=== PATIENT | male | born 1970 | race American Indian/Alaskan Native ===

== ENCOUNTER 2016-05-02 21:33 | Emergency (ER) | payer MEDICARE ==
[2016-05-03 00:51] LABS: Basophils % (Auto) 0.9 % (0.0-1.8); Eosinophils % (Auto) 3.2 % (0.0-4.3); Hematocrit 43.1 % (35.5-45.6); Hemoglobin 14.2 gm/dl (11.8-15.2); Mean Corpuscular HGB Conc 33 % (32-34); Mean Corpuscular Hemoglobin 28 pg (28-32); Mean Corpuscular Volume 84 fl (84-94); Platelet Count 253 K/mm3 (140-440); Red Blood Count 5.14 M/mm3 (3.65-5.03); Red Cell Distribution Width 14.6 % (13.2-15.2); White Blood Count 11.6 K/mm3 (4.5-11.0)
[2016-05-03 01:37] LABS: Anion Gap 19 mmol/L; Blood Urea Nitrogen 11 mg/dL (9-20); Calcium 9.4 mg/dL (8.4-10.2); Carbon Dioxide 26 mmol/L (22-30); Chloride 99.2 mmol/L (98-107); Glucose 108 mg/dL (75-100); Potassium 3.9 mmol/L (3.6-5.0); Sodium 140 mmol/L (137-145)
[2016-05-03 06:07] LABS: Urine Drugs of Abuse Note Disclamer
[2016-05-03 06:38] LABS: Bilirubin,Urine NEG (Negative); Blood,Urine NEG (Negative); Ketones,Urine NEG (Negative); Leukocyte Esterase,Urine NEG (Negative); Mucus,Urine 3+ /HPF; Nitrite,Urine NEG (Negative)
--- NOTE | 2016-05-03 06:57 | Emergency Department Report ---
ED Psych HPI - General Chief Complaint: Medical Clearance Stated Complaint: MEDICAL CLEARANCE Time Seen by Provider: 05/03/16 06:54 Source: patient Mode of arrival: Ambulatory Limitations: No Limitations - History of Present Illness Initial Comments: States that he was sent here by [facility] for medical clearance for the "[facility] ". He is not being transferred to an inpatient facility. He has no active complaints. He is going into an outpatient treatment program for cocaine abuse. He denies chest pain dark urine muscle aches or any specific symptoms. He is eating breakfast at the time of my encounter. MD Complaint: other -: unknown Associated Psychiatric Symptoms: none History of same: No Improves With: none Worsens With: none Context: recent drug abuse - Related Data Allergies Allergy/AdvReac Type Severity Reaction Status Date / Time No Known Allergies Allergy Unverified 05/03/16 00:18 ED Review of Systems ROS: Stated complaint: MEDICAL CLEARANCE Other details as noted in HPI Constitutional: denies: chills, fever Eyes: denies: eye pain, eye discharge, vision change ENT: denies: ear pain, throat pain Respiratory: denies: cough, shortness of breath, wheezing Cardiovascular: denies: chest pain, palpitations Endocrine: no symptoms reported Gastrointestinal: denies: abdominal pain, nausea, diarrhea Genitourinary: denies: urgency, dysuria Musculoskeletal: denies: back pain, joint swelling, arthralgia Skin: denies: rash, lesions Neurological: denies: headache, weakness, paresthesias Psychiatric: denies: anxiety, depression Hematological/Lymphatic: denies: easy bleeding, easy bruising ED Past Medical Hx - Past Medical History Previous Medical History?: Yes Hx Hypertension: Yes Hx Diabetes: Yes Hx GERD: Yes - Surgical History Past Surgical History?: No - Social History Smoking Status: Current Every Day Smoker Substance Use Type: Cocaine ED Physical Exam - General Limitations: No Limitations General appearance: alert, in no apparent distress - Head Head exam: Present: atraumatic, normocephalic - Eye Eye exam: Present: normal appearance, PERRL, EOMI. Absent: scleral icterus - ENT ENT exam: Present: mucous membranes moist - Neck Neck exam: Present: normal inspection - Respiratory Respiratory exam: Present: normal lung sounds bilaterally. Absent: respiratory distress - Cardiovascular Cardiovascular Exam: Present: regular rate, normal rhythm. Absent: systolic murmur, diastolic murmur, rubs, gallop - GI/Abdominal GI/Abdominal exam: Present: soft, normal bowel sounds. Absent: distended, tenderness, guarding, rebound, rigid - Rectal Rectal exam: Present: deferred - Extremities Exam Extremities exam: Present: normal inspection - Back Exam Back exam: Present: normal inspection - Neurological Exam Neurological exam: Present: alert, oriented X3, CN II-XII intact. Absent: motor sensory deficit - Psychiatric Psychiatric exam: Present: normal affect, normal mood - Skin Skin exam: Present: warm, dry, intact, normal color. Absent: rash ED Course Vital Signs 05/03/16 05/03/16 05/03/16 00:08 05:45 05:49 Temperature 97.9 F 98.5 F Pulse Rate 96 H 86 Respiratory 20 Rate Blood Pressure 139/97 Blood Pressure 123/83 [Left] O2 Sat by Pulse 99 96 97 Oximetry 05/03/16 05/03/16 05/03/16 05:50 06:00 06:30 Temperature Pulse Rate Respiratory Rate Blood Pressure 119/81 120/85 Blood Pressure [Left] O2 Sat by Pulse 98 95 90 Oximetry 05/03/16 05/03/16 07:00 07:30 Temperature Pulse Rate Respiratory Rate Blood Pressure 113/79 116/89 Blood Pressure [Left] O2 Sat by Pulse 95 96 Oximetry ED Medical Decision Making - Lab Data Result diagrams: 05/03/16 00:31 05/03/16 00:31 Laboratory Results - last 24 hr 05/03/16 05/03/16 05/03/16 00:31 00:31 00:31 WBC 11.6 H RBC 5.14 H Hgb 14.2 Hct 43.1 MCV 84 MCH 28 MCHC 33 RDW 14.6 Plt Count 253 Lymph % (Auto) 33.5 [place] % (Auto) 9.5 H Eos % (Auto) 3.2 Baso % (Auto) 0.9 Lymph # 3.9 [place] # 1.1 H Eos # 0.4 Baso # 0.1 Seg Neutrophils % 52.9 Seg Neutrophils # 6.1 Sodium 140 Potassium 3.9 Chloride 99.2 Carbon Dioxide 26 Anion Gap 19 BUN 11 Creatinine 1.0 Estimated GFR > 60 BUN/Creatinine Ratio 11.00 Glucose 108 H Calcium 9.4 Urine Color Urine Turbidity Urine pH Ur Specific [place] Urine Protein Urine Glucose (UA) Urine Ketones Urine Blood Urine Nitrite Ur Reducing Substances Urine Bilirubin Urine Ictotest Urine Urobilinogen Ur Leukocyte Esterase Urine WBC (Auto) Urine RBC (Auto) U Epithel Cells (Auto) Urine Mucus Urine Opiates Screen Urine Methadone Screen Ur Barbiturates Screen Ur Phencyclidine Scrn Ur Amphetamines Screen U Benzodiazepines Scrn U Marijuana (THC) Screen Drugs of Abuse Note Plasma/Serum Alcohol < 0.01 05/03/16 05/03/16 05:53 05:53 WBC RBC Hgb Hct MCV MCH MCHC RDW Plt Count Lymph % (Auto) [place] % (Auto) Eos % (Auto) Baso % (Auto) Lymph # [place] # Eos # Baso # Seg Neutrophils % Seg Neutrophils # Sodium Potassium Chloride Carbon Dioxide Anion Gap BUN Creatinine Estimated GFR BUN/Creatinine Ratio Glucose Calcium Urine Color [place] Urine Turbidity Clear Urine pH 5.0 Ur Specific [place] 1.028 Urine Protein 30 mg/dl Urine Glucose (UA) Neg Urine Ketones Neg Urine Blood Neg Urine Nitrite Neg Ur Reducing Substances Not Reportable Urine Bilirubin Neg Urine Ictotest Not Reportable Urine Urobilinogen 4.0 Ur Leukocyte Esterase Neg Urine WBC (Auto) 1.0 Urine RBC (Auto) 6.0 U Epithel Cells (Auto) < 1.0 Urine Mucus 3+ Urine Opiates Screen Presumptive negative Urine Methadone Screen Presumptive negative Ur Barbiturates Screen Presumptive negative Ur Phencyclidine Scrn Presumptive negative Ur Amphetamines Screen Presumptive negative U Benzodiazepines Scrn Presumptive negative U Marijuana (THC) Screen Presumptive negative Drugs of Abuse Note Disclamer Plasma/Serum Alcohol Critical care attestation.: If time is entered above; I have spent that time in minutes in the direct care of this critically ill patient, excluding procedure time. ED Disposition Clinical Impression: Cocaine abuse, Encounter for medical screening examination Disposition: DISCHARGED TO HOME OR SELFCARE Is pt being admited?: No Does the pt Need Aspirin: No Condition: Stable Instructions: Cocaine Abuse (ED) Additional Instructions: You are medically clear for an outpatient essential program such as [facility]. Referrals: PRIMARY CAREMD [Primary Care Provider] - 3-5 Days Time of Disposition: 08:11
[2016-05-03 12:24] VITALS: BP 101/55
== END 2016-05-03 11:55 | disposition home or self-care (01) ==
LOC: ED 21:33
DX: Z13.89 Encounter for screening for other disorder (principal); F14.10 Cocaine abuse, uncomplicated; I10 Essential (primary) hypertension; E11.9 Type 2 diabetes mellitus without complications; K21.9 Gastro-esophageal reflux disease without esophagitis; F17.200 Nicotine dependence, unspecified, uncomplicated
CPT/HCPCS: 36415; 80048; 80307; 81001; 85025; 99284; G0480; 80320

== ENCOUNTER 2016-08-23 08:40 | Emergency (ER) | payer MEDICARE ==
[2016-08-23 10:10] LABS: Basophils % (Auto) 1.2 % (0.0-1.8); Eosinophils % (Auto) 0.1 % (0.0-4.3); Hematocrit 41.7 % (35.5-45.6); Hemoglobin 13.6 gm/dl (11.8-15.2); Mean Corpuscular HGB Conc 33 % (32-34); Mean Corpuscular Hemoglobin 28 pg (28-32); Mean Corpuscular Volume 85 fl (84-94); Platelet Count 264 K/mm3 (140-440); Red Blood Count 4.89 M/mm3 (3.65-5.03); Red Cell Distribution Width 14.5 % (13.2-15.2); White Blood Count 11.8 K/mm3 (4.5-11.0)
[2016-08-23 10:29] LABS: Anion Gap 22 mmol/L; Blood Urea Nitrogen 9 mg/dL (9-20); Calcium 9.2 mg/dL (8.4-10.2); Carbon Dioxide 21 mmol/L (22-30); Chloride 98.3 mmol/L (98-107); Glucose 96 mg/dL (75-100); Potassium 4.2 mmol/L (3.6-5.0); Sodium 137 mmol/L (137-145)
[2016-08-23 13:40] LABS: Urine Drugs of Abuse Note Disclamer
[2016-08-23 13:51] LABS: Bilirubin,Urine NEG (Negative); Blood,Urine NEG (Negative); Ketones,Urine NEG (Negative); Leukocyte Esterase,Urine NEG (Negative); Mucus,Urine 1+ /HPF; Nitrite,Urine NEG (Negative); Protein,Urine <15 mg/dL mg/dL (Negative); Urobilinogen,Urine < 2.0 mg/dL (<2.0)
--- NOTE | 2016-08-23 15:56 | Emergency Department Report ---
ED Psych HPI - General Chief Complaint: Psych Stated Complaint: DETOX/SUICIDAL Time Seen by Provider: 08/23/16 15:42 Source: patient Mode of arrival: Ambulatory - History of Present Illness Initial Comments: 46-year-old male who presents emergency Department after use of alcohol and cocaine today. States she's feeling depressed about this and is looking to enter a treatment facility. He has been to [facility] and other facilities in the past. Denies chest pain nausea vomiting. He denied suicidality to me however he did mention that he was suicidal to the nursing staff. MD Complaint: feels depressed, other -: Gradual Associated Psychiatric Symptoms: depression Improves With: none Worsens With: none Context: recent alcohol abuse, recent drug abuse, not taking psychiatric Associated Symptoms: denies: confusion, headache, nausea, vomiting, syncope, insomnia Treatments Prior to Arrival: none - Related Data Allergies Allergy/AdvReac Type Severity Reaction Status Date / Time No Known Allergies Allergy Unverified 05/03/16 00:18 ED Review of Systems ROS: Stated complaint: DETOX/SUICIDAL Other details as noted in HPI Constitutional: denies: chills, fever Eyes: denies: eye pain, eye discharge, vision change ENT: denies: ear pain, throat pain Respiratory: denies: cough, shortness of breath, wheezing Cardiovascular: denies: chest pain, palpitations Endocrine: no symptoms reported Gastrointestinal: denies: abdominal pain, nausea, diarrhea Genitourinary: denies: urgency, dysuria Musculoskeletal: denies: back pain, joint swelling, arthralgia Skin: denies: rash, lesions Neurological: denies: headache, weakness, paresthesias Psychiatric: depression. denies: anxiety Hematological/Lymphatic: denies: easy bleeding, easy bruising ED Past Medical Hx - Past Medical History Hx Hypertension: Yes Hx Diabetes: Yes Hx GERD: Yes - Surgical History Past Surgical History?: No - Family History Family history: no significant - Social History Smoking Status: Current Every Day Smoker Substance Use Type: Cocaine ED Physical Exam - General Limitations: No Limitations General appearance: alert, in no apparent distress - Head Head exam: Present: atraumatic, normocephalic - Eye Eye exam: Present: normal appearance - ENT ENT exam: Present: mucous membranes moist - Neck Neck exam: Present: normal inspection - Respiratory Respiratory exam: Present: normal lung sounds bilaterally. Absent: respiratory distress - Cardiovascular Cardiovascular Exam: Present: regular rate, normal rhythm. Absent: systolic murmur, diastolic murmur, rubs, gallop - GI/Abdominal GI/Abdominal exam: Present: soft, normal bowel sounds - Rectal Rectal exam: Present: deferred - Extremities Exam Extremities exam: Present: normal inspection - Back Exam Back exam: Present: normal inspection - Neurological Exam Neurological exam: Present: alert, oriented X3 - Psychiatric Psychiatric exam: Present: depressed, flat affect - Skin Skin exam: Present: warm, dry, intact, normal color. Absent: rash ED Course Vital Signs 08/23/16 08/23/16 08/23/16 09:13 15:31 15:58 Temperature 98.4 F 98.5 F Pulse Rate 101 H 92 H Respiratory 12 18 16 Rate Blood Pressure 142/92 Blood Pressure 139/95 [Left] O2 Sat by Pulse 95 97 98 Oximetry 08/23/16 16:01 Temperature 98.7 F Pulse Rate 94 H Respiratory 18 Rate Blood Pressure Blood Pressure 123/84 [Left] O2 Sat by Pulse 98 Oximetry ED Medical Decision Making - Lab Data Result diagrams: 08/23/16 09:44 08/23/16 09:44 Laboratory Results - last 24 hr 08/23/16 08/23/16 08/23/16 09:44 09:44 09:44 WBC 11.8 H RBC 4.89 Hgb 13.6 Hct 41.7 MCV 85 MCH 28 MCHC 33 RDW 14.5 Plt Count 264 Lymph % (Auto) 29.5 [place] % (Auto) 8.3 H Eos % (Auto) 0.1 Baso % (Auto) 1.2 Lymph # 3.5 [place] # 1.0 H Eos # 0.0 Baso # 0.1 Seg Neutrophils % 60.9 Seg Neutrophils # 7.2 Sodium 137 Potassium 4.2 Chloride 98.3 Carbon Dioxide 21 L Anion Gap 22 BUN 9 Creatinine 1.0 Estimated GFR > 60 BUN/Creatinine Ratio 9.00 Glucose 96 Calcium 9.2 Urine Color Urine Turbidity Urine pH Ur Specific [place] Urine Protein Urine Glucose (UA) Urine Ketones Urine Blood Urine Nitrite Urine Bilirubin Urine Urobilinogen Ur Leukocyte Esterase Urine WBC (Auto) Urine RBC (Auto) U Epithel Cells (Auto) Hyaline Casts Urine Mucus Urine Opiates Screen Urine Methadone Screen Ur Barbiturates Screen Ur Phencyclidine Scrn Ur Amphetamines Screen U Benzodiazepines Scrn Urine Cocaine Screen U Marijuana (THC) Screen Drugs of Abuse Note Plasma/Serum Alcohol 0.14 H 08/23/16 08/23/16 Unknown Unknown WBC RBC Hgb Hct MCV MCH MCHC RDW Plt Count Lymph % (Auto) [place] % (Auto) Eos % (Auto) Baso % (Auto) Lymph # [place] # Eos # Baso # Seg Neutrophils % Seg Neutrophils # Sodium Potassium Chloride Carbon Dioxide Anion Gap BUN Creatinine Estimated GFR BUN/Creatinine Ratio Glucose Calcium Urine Color Yellow Urine Turbidity Slightly-cloudy Urine pH 5.0 Ur Specific [place] 1.015 Urine Protein <15 mg/dl Urine Glucose (UA) Neg Urine Ketones Neg Urine Blood Neg Urine Nitrite Neg Urine Bilirubin Neg Urine Urobilinogen < 2.0 Ur Leukocyte Esterase Neg Urine WBC (Auto) 4.0 Urine RBC (Auto) 2.0 U Epithel Cells (Auto) 1.0 Hyaline Casts 1 Urine Mucus 1+ Urine Opiates Screen Presumptive negative Urine Methadone Screen Presumptive negative Ur Barbiturates Screen Presumptive positive Ur Phencyclidine Scrn Presumptive negative Ur Amphetamines Screen Presumptive negative U Benzodiazepines Scrn Presumptive positive Urine Cocaine Screen Presumptive positive U Marijuana (THC) Screen Presumptive negative Drugs of Abuse Note Disclamer Plasma/Serum Alcohol - Medical Decision Making Procedural male here with a history of substance abuse has been to rehabilitation multiple times is here requesting rehabilitation. His labs are unremarkable. His clinical exam is unremarkable. He initially denied suicidality to me. He did say he was suicidal to the nurses. At this point I do not plan to 1013. Patient to follow-up at outpatient treatment center. Portions of this chart were dictated with dictation software. There may be dictation errors contained within this note. Critical care attestation.: If time is entered above; I have spent that time in minutes in the direct care of this critically ill patient, excluding procedure time. ED Disposition Clinical Impression: Substance abuse, Cocaine abuse, Alcohol intoxication Disposition: DC-01 TO HOME OR SELFCARE Is pt being admited?: No Does the pt Need Aspirin: No Condition: Stable Instructions: Abuse of Alcohol (ED), Medical Clearance for Substance Abuse Treatment (ED) Additional Instructions: Patient is medically clear for further treatment of substance abuse
[2016-08-23 16:02] VITALS: BP 123/84
== END 2016-08-23 16:49 | disposition home or self-care (01) ==
LOC: ED 08:40
DX: F19.10 Other psychoactive substance abuse, uncomplicated (principal); F14.10 Cocaine abuse, uncomplicated; F10.129 Alcohol abuse with intoxication, unspecified; I10 Essential (primary) hypertension; E11.9 Type 2 diabetes mellitus without complications; K21.9 Gastro-esophageal reflux disease without esophagitis; F17.200 Nicotine dependence, unspecified, uncomplicated
CPT/HCPCS: 36415; 80048; 80307; 81001; 85025; 99283; G0480; 80320

== ENCOUNTER 2017-04-20 18:11 | Emergency (ER) | payer MEDICARE ==
[2017-04-20 18:38] VITALS: BP 124/90
[2017-04-20] MEDS ORDERED: ASPIRIN PO ONE (18:38)
[2017-04-20 22:38] LABS: Bilirubin,Urine NEG (Negative); Blood,Urine NEG (Negative); Color,Urine Yellow (Yellow); Mucus,Urine 1+ /HPF; Protein,Urine <15 mg/dL mg/dL (Negative); Urobilinogen,Urine < 2.0 mg/dL (<2.0)
[2017-04-20 22:43] LABS: Amphetamine Screen,Urine PRESUMPTIVE NEGATIVE; Benzodiazepines Screen,Urine PRESUMPTIVE NEGATIVE; Cannabinoid Screen,Urine PRESUMPTIVE NEGATIVE; Methadone Screen,Urine PRESUMPTIVE NEGATIVE; Opiate Screen,Urine PRESUMPTIVE NEGATIVE
[2017-04-20 22:46] LABS: Cocaine Screen,Urine PRESUMPTIVE POSITIVE
== END 2017-04-20 20:00 | disposition left against medical advice (07) ==
LOC: ED 18:11
DX: R07.9 Chest pain, unspecified (principal); Z53.21 Procedure and treatment not carried out due to patient leaving prior to being seen by health care provider
CPT/HCPCS: 80307; 81001; 93005; 93010; 99283

== ENCOUNTER 2017-05-03 02:18 | Emergency (ER) | payer MEDICARE ==
[2017-05-03] MEDS ORDERED: ASPIRIN PO ONE (02:36)
[2017-05-03 02:59] LABS: Basophils # (Auto) 0.1 K/mm3 (0.0-0.1); Basophils % (Auto) 0.8 % (0.0-1.8); Eosinophils # (Auto) 0.3 K/mm3 (0.0-0.4); Eosinophils % (Auto) 3.6 % (0.0-4.3); Hematocrit 41.1 % (35.5-45.6); Hemoglobin 13.7 gm/dl (11.8-15.2); Lymphocytes # (Auto) 3.7 K/mm3 (1.2-5.4); Lymphocytes % (Auto) 48.1 % (13.4-35.0); Mean Corpuscular HGB Conc 33 % (32-34); Mean Corpuscular Hemoglobin 29 pg (28-32); Mean Corpuscular Volume 86 fl (84-94); Monocytes # (Auto) 0.7 K/mm3 (0.0-0.8); Monocytes % (Auto) 8.7 % (0.0-7.3); Platelet Count 220 K/mm3 (140-440); Red Blood Count 4.76 M/mm3 (3.65-5.03); Red Cell Distribution Width 14.9 % (13.2-15.2)
[2017-05-03 03:15] LABS: BUN/Creatinine Ratio 10; Blood Urea Nitrogen 9 mg/dL (9-20); Calcium 8.8 mg/dL (8.4-10.2); Hemolysis Index 7
[2017-05-03 07:07] LABS: Benzodiazepines Screen,Urine PRESUMPTIVE NEGATIVE; Cannabinoid Screen,Urine PRESUMPTIVE NEGATIVE; Methadone Screen,Urine PRESUMPTIVE NEGATIVE; Opiate Screen,Urine PRESUMPTIVE NEGATIVE
[2017-05-03 07:22] LABS: Amphetamine Screen,Urine PRESUMPTIVE POSITIVE; Cocaine Screen,Urine PRESUMPTIVE POSITIVE
--- NOTE | 2017-05-03 12:10 | Emergency Department Report ---
ED Chest Pain HPI - General Chief Complaint: Chest Pain Stated Complaint: CHEST PAIN Time Seen by Provider: 05/03/17 11:28 Source: patient, EMS Mode of arrival: Ambulatory Limitations: No Limitations - History of Present Illness MD Complaint: chest pain -: Gradual Onset: during exertion Severity: mild Severity scale (0 -10): 5 Quality: tightness, heaviness Consistency: constant Improves With: nitroglycerin Worsens With: exertion Context: other (Took a dose of his Seroquel last night so that he could get some sleep. His Seroquel was discontinued by his doctor and replaced with Haldol.) re: nausea Other Symptoms: palpitations Treatments Prior to Arrival: aspirin, nitroglycerin Aspirin use within the Past 7 Days: (1) Yes - Related Data Allergies Allergy/AdvReac Type Severity Reaction Status Date / Time No Known Allergies Allergy Verified 04/20/17 21:18 Heart Score - HEART Score History: Slightly suspicious EKG: Normal Age: 45-65 Risk factors: 1-2 risk factors Troponin: < normal limit HEART Score: 2 ED Review of Systems ROS: Stated complaint: CHEST PAIN Other details as noted in HPI Comment: All other systems reviewed and negative Constitutional: denies: chills, fever Eyes: denies: eye pain, eye discharge, vision change ENT: denies: ear pain, throat pain Respiratory: denies: cough, shortness of breath, wheezing Cardiovascular: denies: chest pain, palpitations Endocrine: no symptoms reported Gastrointestinal: denies: abdominal pain, nausea, diarrhea Genitourinary: denies: urgency, dysuria Musculoskeletal: denies: back pain, joint swelling, arthralgia Skin: denies: rash, lesions Neurological: denies: headache, weakness, paresthesias Psychiatric: denies: anxiety, depression Hematological/Lymphatic: denies: easy bleeding, easy bruising ED Past Medical Hx - Past Medical History Previous Medical History?: Yes Hx Hypertension: Yes Hx Heart Attack/AMI: Yes (x2- 3stents) Hx Diabetes: Yes Hx GERD: Yes Hx Psychiatric Treatment: Yes (depression) Additional medical history: crack abuse - Surgical History Past Surgical History?: Yes Additional Surgical History: 3 angiograms - Social History Smoking Status: Current Every Day Smoker Substance Use Type: Alcohol, Cocaine, Marijuana ED Physical Exam - General Limitations: No Limitations General appearance: alert, in no apparent distress - Head Head exam: Present: atraumatic, normocephalic - Eye Eye exam: Present: normal appearance - ENT ENT exam: Present: mucous membranes moist - Neck Neck exam: Present: normal inspection - Respiratory Respiratory exam: Present: normal lung sounds bilaterally. Absent: respiratory distress - Cardiovascular Cardiovascular Exam: Present: regular rate, normal rhythm, normal heart sounds. Absent: systolic murmur, diastolic murmur, rubs, gallop - GI/Abdominal GI/Abdominal exam: Present: soft, normal bowel sounds. Absent: distended - Rectal Rectal exam: Present: deferred - Extremities Exam Extremities exam: Present: normal inspection - Back Exam Back exam: Present: normal inspection - Neurological Exam Neurological exam: Present: alert, oriented X3 - Psychiatric Psychiatric exam: Present: normal affect, normal mood - Skin Skin exam: Present: warm, dry, intact, normal color. Absent: rash ED Course Vital Signs 05/03/17 05/03/17 02:20 08:22 Temperature 97.9 F 97.9 F Pulse Rate 103 H 77 Respiratory 20 18 Rate Blood Pressure 97/55 103/70 O2 Sat by Pulse 96 99 Oximetry Patient resting comfortably and without complaints of pain. - Reevaluation(s) Reevaluation #1: 05/03/17 14:08 Patient resting comfortably in bed with no complaints. WICHO score - [place] Score Age > 65: (0) No Aspirin use within the Past 7 Days: (0) No 3 or more CAD Risk Factors: (0) No 2 or more Angina events in past 24 hrs: (0) No Known CAD with more than 50% Stenosis: (0) No Elevated Cardiac Markers: (0) No ST Deviation Greater than 0.5mm: (0) No WICHO Score: 0 ED Medical Decision Making - Lab Data Result diagrams: 05/03/17 02:49 05/03/17 02:49 - EKG Data EKG shows normal: sinus rhythm Rate: normal - EKG Data When compared to previous EKG there are: previous EKG unavailable Interpretation: no acute changes - Medical Decision Making Discussed patient's condition. I instructed to not take any more of his Seroquel unless directed by his PCP. He was also instructed to discontinue use of cocaine and to take prescribed medications as directed. He is to follow up with PCP in 2 days. - Differential Diagnosis Palpitations, Angina, Chest Pain - non-cardiac Critical Care Time: No Critical care attestation.: If time is entered above; I have spent that time in minutes in the direct care of this critically ill patient, excluding procedure time. ED Disposition Clinical Impression: Chest pain due to CAD, Palpitations, Cocaine abuse, Non compliance w medication regimen Disposition: TO HOME OR SELFCARE Is pt being admited?: No Does the pt Need Aspirin: No Condition: Stable Instructions: Chest Pain (ED) Referrals: PRIMARY CARE, [Primary Care Provider] - 3-5 Days
[2017-05-03 16:01] VITALS: BP 122/70
== END 2017-05-03 16:22 | disposition home or self-care (01) ==
LOC: ED 02:18
DX: R07.9 Chest pain, unspecified (principal); R00.2 Palpitations; F14.10 Cocaine abuse, uncomplicated; Z91.14 Patient's other noncompliance with medication regimen; I10 Essential (primary) hypertension; G43.909 Migraine, unspecified, not intractable, without status migrainosus; E11.9 Type 2 diabetes mellitus without complications; K21.9 Gastro-esophageal reflux disease without esophagitis
CPT/HCPCS: 36415; 80048; 80307; 84484; 85025; 93005; 93010

== ENCOUNTER 2017-07-22 16:28 | Emergency (ER) | payer MEDICARE ==
[2017-07-22 17:38] LABS: Basophils # (Auto) 0.2 K/mm3 (0.0-0.1); Basophils % (Auto) 1.1 % (0.0-1.8); Eosinophils % (Auto) 0.2 % (0.0-4.3); Hemoglobin 14.1 gm/dl (11.8-15.2); Lymphocytes # (Auto) 2.9 K/mm3 (1.2-5.4); Lymphocytes % (Auto) 20.8 % (13.4-35.0); Mean Corpuscular HGB Conc 34 % (32-34); Mean Corpuscular Hemoglobin 29 pg (28-32); Mean Corpuscular Volume 86 fl (84-94); Monocytes # (Auto) 1.3 K/mm3 (0.0-0.8); Platelet Count 295 K/mm3 (140-440); Red Blood Count 4.87 M/mm3 (3.65-5.03); Red Cell Distribution Width 14.6 % (13.2-15.2)
[2017-07-22 17:59] LABS: BUN/Creatinine Ratio 15; Blood Urea Nitrogen 16 mg/dL (9-20); Calcium 9.3 mg/dL (8.4-10.2); Hemolysis Index 105
[2017-07-22 18:02] LABS: Bilirubin,Urine NEG (Negative); Blood,Urine NEG (Negative); Color,Urine Yellow (Yellow); Hyaline Casts,Urine 22 /LPF; Mucus,Urine 2+ /HPF; Urobilinogen,Urine < 2.0 mg/dL (<2.0)
[2017-07-22 18:16] LABS: Benzodiazepines Screen,Urine PRESUMPTIVE NEGATIVE; Cannabinoid Screen,Urine PRESUMPTIVE NEGATIVE; Methadone Screen,Urine PRESUMPTIVE NEGATIVE; Opiate Screen,Urine PRESUMPTIVE NEGATIVE
[2017-07-22 18:29] LABS: Amphetamine Screen,Urine PRESUMPTIVE NEGATIVE; Cocaine Screen,Urine PRESUMPTIVE POSITIVE
--- NOTE | 2017-07-22 20:21 | Emergency Department Report ---
ED Psych HPI - General Chief Complaint: Psych Stated Complaint: DEPRESSED Time Seen by Provider: 07/22/17 19:56 Source: patient, EMS Mode of arrival: Ambulatory Limitations: No Limitations - History of Present Illness MD Complaint: suicidal ideation -: Gradual Associated Psychiatric Symptoms: suicidal ideation History of same: Yes Quality: constant Improves With: none Worsens With: none Context: recent alcohol abuse, recent drug abuse Associated Symptoms: denies other symptoms Treatments Prior to Arrival: none If Self Harm: admits thoughts of - Related Data Home Medications Medication Instructions Recorded Confirmed Last Taken AtorvaSTATin 80 mg PO HS 05/27/17 05/27/17 1 Day Ago ~05/26/17 Haldol 2 mg PO HS MDD psychosis 05/27/17 05/27/17 2 Days Ago ~05/25/17 2mg Lisinopril [Zestril] 20 mg PO QDAY 05/27/17 05/27/17 1 Day Ago ~05/26/17 Metoprolol [Lopressor TAB] 12.5 mg PO BID 05/27/17 05/27/17 1 Day Ago ~05/26/17 Mirtazapine [Remeron] 15 mg PO HS 05/27/17 05/27/17 1 Day Ago ~05/26/17 15mg Zantac 150 MG TAB 150 mg PO BID 05/27/17 05/27/17 1 Day Ago ~05/26/17 Zoloft 100 mg PO QDAY 05/27/17 05/27/17 1 Day Ago ~05/26/17 100mg Previous Rx's Medication Instructions Recorded Last Taken Type Aspirin EC [Aspirin Enteric Coated 81 mg PO QDAY #30 tablet. 05/29/17 Unknown Rx TAB] Famotidine [Pepcid] 20 mg PO BID #60 tablet 05/29/17 Unknown Rx ISOSORBIDE MONOnitrate [Imdur ER] 30 mg PO QDAY #30 tablet 05/29/17 Unknown Rx Allergies Allergy/AdvReac Type Severity Reaction Status Date / Time No Known Allergies Allergy Verified 04/20/17 21:18 ED Review of Systems ROS: Stated complaint: DEPRESSED Other details as noted in HPI Comment: All other systems reviewed and negative Constitutional: denies: chills, fever Eyes: denies: eye pain, vision change ENT: denies: ear pain, dental pain Respiratory: denies: cough, shortness of breath Cardiovascular: denies: chest pain, palpitations Endocrine: no symptoms reported Gastrointestinal: denies: abdominal pain, nausea, vomiting, diarrhea Genitourinary: denies: urgency, dysuria, frequency Musculoskeletal: denies: back pain, joint swelling Skin: denies: rash, lesions Neurological: denies: headache, weakness, numbness Psychiatric: denies: anxiety, depression Hematological/Lymphatic: denies: easy bleeding, easy bruising ED Past Medical Hx - Past Medical History Previous Medical History?: Yes Hx Hypertension: Yes Hx Heart Attack/AMI: Yes (x2- 3stents) Hx Diabetes: Yes Hx GERD: Yes Hx Psychiatric Treatment: Yes (major depression, Schizoaffective, Insomnia) Hx COPD: No Additional medical history: crack abuse - Surgical History Past Surgical History?: Yes Hx Coronary Stent: Yes Additional Surgical History: 3 angiograms - Social History Smoking Status: Current Every Day Smoker Substance Use Type: Alcohol, Cocaine, Marijuana - Medications Home Medications: Home Medications Medication Instructions Recorded Confirmed Last Taken Type AtorvaSTATin 80 mg PO HS 05/27/17 05/27/17 1 Day Ago History ~05/26/17 Haldol 2 mg PO HS MDD psychosis 05/27/17 05/27/17 2 Days Ago History ~05/25/17 2mg Lisinopril [Zestril] 20 mg PO QDAY 05/27/17 05/27/17 1 Day Ago History ~05/26/17 Metoprolol [Lopressor TAB] 12.5 mg PO BID 05/27/17 05/27/17 1 Day Ago History ~05/26/17 Mirtazapine [Remeron] 15 mg PO HS 05/27/17 05/27/17 1 Day Ago History ~05/26/17 15mg Zantac 150 MG TAB 150 mg PO BID 05/27/17 05/27/17 1 Day Ago History ~05/26/17 Zoloft 100 mg PO QDAY 05/27/17 05/27/17 1 Day Ago History ~05/26/17 100mg Aspirin EC [Aspirin Enteric Coated 81 mg PO QDAY #30 tablet. 05/29/17 Unknown Rx TAB] Famotidine [Pepcid] 20 mg PO BID #60 tablet 05/29/17 Unknown Rx ISOSORBIDE MONOnitrate [Imdur ER] 30 mg PO QDAY #30 tablet 05/29/17 Unknown Rx ED Physical Exam - General Limitations: No Limitations General appearance: alert - Head Head exam: Present: atraumatic, normocephalic, normal inspection - Eye Eye exam: Present: normal appearance, PERRL, EOMI Pupils: Present: normal accommodation - ENT ENT exam: Present: normal exam, normal orophraynx, mucous membranes moist - Neck Neck exam: Present: normal inspection, full ROM. Absent: tenderness - Respiratory Respiratory exam: Present: normal lung sounds bilaterally. Absent: respiratory distress, wheezes, rhonchi - Cardiovascular Cardiovascular Exam: Present: regular rate, normal rhythm, normal heart sounds - GI/Abdominal GI/Abdominal exam: Present: soft, normal bowel sounds. Absent: distended, tenderness, guarding, rebound - Extremities Exam Extremities exam: Present: normal inspection, normal capillary refill - Back Exam Back exam: Present: normal inspection, full ROM. Absent: tenderness - Neurological Exam Neurological exam: Present: alert, oriented X3, CN II-XII intact - Psychiatric Psychiatric exam: Present: normal mood, depressed, flat affect, suicidal ideation - Skin Skin exam: Present: warm, dry, intact, normal color ED Course Vital Signs 07/22/17 17:04 Temperature 99.1 F Pulse Rate 96 H Respiratory 20 Rate Blood Pressure 99/63 O2 Sat by Pulse 100 Oximetry ED Medical Decision Making - Lab Data Result diagrams: 07/22/17 17:20 07/22/17 17:20 - Radiology Data Radiology results: report reviewed - Medical Decision Making Suicide Ideation. Critical care attestation.: If time is entered above; I have spent that time in minutes in the direct care of this critically ill patient, excluding procedure time. ED Disposition Clinical Impression: Cocaine abuse, Suicide ideation, Alcohol abuse Disposition: [id number]/TX-65 PSY HOSP/PSY UNIT Is pt being admited?: No Does the pt Need Aspirin: No Condition: Stable Referrals: PRIMARY CARE,MD [Primary Care Provider] - 3-5 Days
[2017-07-22 21:04] LABS: Alanine Aminotransferase 35 units/L (7-56); Albumin 4.8 g/dL (3.9-5)
[2017-07-22 21:05] LABS: Bilirubin,Direct < 0.2 mg/dL (0-0.2)
[2017-07-22 23:21] VITALS: BP 106/61
== END 2017-07-23 08:15 ==
LOC: EEVIPCON 16:28 → ED 16:28
DX: R45.851 Suicidal ideations (principal); I10 Essential (primary) hypertension; I25.2 Old myocardial infarction; E11.9 Type 2 diabetes mellitus without complications; K21.9 Gastro-esophageal reflux disease without esophagitis; F32.9 Major depressive disorder, single episode, unspecified; F17.200 Nicotine dependence, unspecified, uncomplicated; F10.10 Alcohol abuse, uncomplicated; F14.10 Cocaine abuse, uncomplicated; Z79.82 Long term (current) use of aspirin; Z95.5 Presence of coronary angioplasty implant and graft
CPT/HCPCS: 36415; 80048; 80074; 80307; 81001; 84443; 85025; 99285; G0480; 80320

== ENCOUNTER 2017-10-24 04:05 | Emergency (ER) | payer MEDICARE ==
[2017-10-24 05:07] LABS: Basophils # (Auto) 0.1 K/mm3 (0.0-0.1); Basophils % (Auto) 0.7 % (0.0-1.8); Eosinophils % (Auto) 0.1 % (0.0-4.3); Hematocrit 43.2 % (35.5-45.6); Hemoglobin 14.5 gm/dl (11.8-15.2); Lymphocytes # (Auto) 2.1 K/mm3 (1.2-5.4); Lymphocytes % (Auto) 21.9 % (13.4-35.0); Mean Corpuscular HGB Conc 34 % (32-34); Mean Corpuscular Hemoglobin 30 pg (28-32); Mean Corpuscular Volume 88 fl (84-94); Monocytes # (Auto) 0.7 K/mm3 (0.0-0.8); Monocytes % (Auto) 7.3 % (0.0-7.3); Platelet Count 218 K/mm3 (140-440); Red Blood Count 4.93 M/mm3 (3.65-5.03)
[2017-10-24 05:28] LABS: BUN/Creatinine Ratio 9; Blood Urea Nitrogen 11 mg/dL (9-20); Calcium 9.6 mg/dL (8.4-10.2); Hemolysis Index 4
--- NOTE | 2017-10-24 10:21 | Emergency Department Report ---
ED Psych HPI - General Chief Complaint: Chest Pain Stated Complaint: CHEST PAIN Time Seen by Provider: 10/24/17 10:13 Source: patient Mode of arrival: Ambulatory - History of Present Illness Initial Comments: Is a 47-year-old male who is complaining of chest discomfort. Patient states she's been smoking crack and has just pain after smoking crack. Patient states he's been using drugs in order to get high so that he no longer has suicidal thoughts. Patient states been feeling suicidal for approximately a week we'll plan to drown himself in a nearby [place]. Patient is here wanting help for his drug addiction and suicidal ideations. Patient has no current chest pain or shortness of breath.. Patient denies any nausea vomiting diarrhea or diaphoresis. - Related Data Home Medications Medication Instructions Recorded Confirmed Last Taken Atorvastatin Calcium [Lipitor] 80 mg PO QHS #0 05/27/17 10/09/17 1 Day Ago ~05/26/17 Haloperidol [Haldol] 2 mg PO QHS #0 MDD psychosis 05/27/17 10/09/17 2 Days Ago ~05/25/17 2mg Metoprolol [Lopressor TAB] 12.5 mg PO BID 05/27/17 10/09/17 1 Day Ago ~05/26/17 Ranitidine HCl [Zantac 150 MG TAB] 150 mg PO BID #0 05/27/17 10/09/17 1 Day Ago ~05/26/17 Sertraline [Zoloft] 100 mg PO QDAY #0 05/27/17 10/09/17 1 Day Ago ~05/26/17 100mg Previous Rx's Medication Instructions Recorded Last Taken Type Aspirin EC [Aspirin Enteric Coated 81 mg PO QDAY #30 tablet.dr 05/29/17 Unknown Rx TAB] Famotidine [Pepcid] 20 mg PO BID #60 tablet 05/29/17 Unknown Rx Aspirin EC [Aspirin Enteric Coated 325 mg PO QDAY #30 tablet 10/10/17 Unknown Rx TAB] AtorvaSTATin [Lipitor] 40 mg PO QHS #30 tablet 10/10/17 Unknown Rx Haloperidol [Haldol] 2 mg PO QHS tablet 10/10/17 Unknown Rx ISOSORBIDE MONOnitrate [Imdur ER] 30 mg PO QDAY #30 tablet 10/10/17 Unknown Rx Lisinopril [Zestril] 20 mg PO QDAY #30 tablet 10/10/17 Unknown Rx Mirtazapine [Remeron] 15 mg PO HS #30 tablet 10/10/17 Unknown Rx Sertraline [Zoloft] 100 mg PO QDAY #30 tablet 10/10/17 Unknown Rx Allergies Allergy/AdvReac Type Severity Reaction Status Date / Time No Known Allergies Allergy Verified 04/20/17 21:18 ED Review of Systems ROS: Stated complaint: CHEST PAIN Other details as noted in HPI Comment: All other systems reviewed and negative ED Past Medical Hx - Past Medical History Previous Medical History?: Yes Hx Hypertension: Yes Hx Heart Attack/AMI: Yes (x2- 3stents) Hx Diabetes: Yes Hx GERD: Yes Hx Psychiatric Treatment: Yes (major depression, Schizoaffective, Insomnia) Hx COPD: No Additional medical history: crack abuse - Surgical History Past Surgical History?: Yes Hx Coronary Stent: Yes Additional Surgical History: 3 angiograms - Social History Smoking Status: Current Every Day Smoker Substance Use Type: Alcohol, Cocaine, Methamphetamines - Medications Home Medications: Home Medications Medication Instructions Recorded Confirmed Last Taken Type Atorvastatin Calcium [Lipitor] 80 mg PO QHS #0 05/27/17 10/09/17 1 Day Ago History ~05/26/17 Haloperidol [Haldol] 2 mg PO QHS #0 MDD psychosis 05/27/17 10/09/17 2 Days Ago History ~05/25/17 2mg Metoprolol [Lopressor TAB] 12.5 mg PO BID 05/27/17 10/09/17 1 Day Ago History ~05/26/17 Ranitidine HCl [Zantac 150 MG TAB] 150 mg PO BID #0 05/27/17 10/09/17 1 Day Ago History ~05/26/17 Sertraline [Zoloft] 100 mg PO QDAY #0 05/27/17 10/09/17 1 Day Ago History ~05/26/17 100mg Aspirin EC [Aspirin Enteric Coated 81 mg PO QDAY #30 tablet. 05/29/17 Unknown Rx TAB] Famotidine [Pepcid] 20 mg PO BID #60 tablet 05/29/17 10/09/17 Unknown Rx Aspirin EC [Aspirin Enteric Coated 325 mg PO QDAY #30 tablet 10/10/17 Unknown Rx TAB] AtorvaSTATin [Lipitor] 40 mg PO QHS #30 tablet 10/10/17 Unknown Rx Haloperidol [Haldol] 2 mg PO QHS tablet 10/10/17 Unknown Rx ISOSORBIDE MONOnitrate [Imdur ER] 30 mg PO QDAY #30 tablet 10/10/17 Unknown Rx Lisinopril [Zestril] 20 mg PO QDAY #30 tablet 10/10/17 Unknown Rx Mirtazapine [Remeron] 15 mg PO HS #30 tablet 10/10/17 Unknown Rx Sertraline [Zoloft] 100 mg PO QDAY #30 tablet 10/10/17 Unknown Rx ED Physical Exam - General Limitations: No Limitations General appearance: alert, in no apparent distress - Head Head exam: Present: atraumatic, normocephalic - Eye Eye exam: Present: normal appearance - ENT ENT exam: Present: mucous membranes moist - Neck Neck exam: Present: normal inspection - Respiratory Respiratory exam: Present: normal lung sounds bilaterally. Absent: respiratory distress, wheezes, rales, rhonchi - Cardiovascular Cardiovascular Exam: Present: regular rate, normal rhythm. Absent: systolic murmur, diastolic murmur, rubs, gallop - GI/Abdominal GI/Abdominal exam: Present: soft, normal bowel sounds. Absent: distended, tenderness, guarding, rebound - Rectal Rectal exam: Present: deferred - Extremities Exam Extremities exam: Present: normal inspection - Back Exam Back exam: Present: normal inspection - Neurological Exam Neurological exam: Present: alert, oriented X3 - Psychiatric Psychiatric exam: Present: normal affect, normal mood - Skin Skin exam: Present: warm, dry, intact, normal color. Absent: rash ED Course Vital Signs 10/24/17 04:27 Temperature 99.4 F Pulse Rate 104 H Respiratory 20 Rate Blood Pressure 122/92 O2 Sat by Pulse 97 Oximetry ED Medical Decision Making - Lab Data Result diagrams: 10/24/17 04:40 10/24/17 04:40 Lab Results 10/24/17 10/24/17 10/24/17 Range/Units 04:40 04:40 04:40 WBC 9.6 (4.5-11.0) K/mm3 RBC 4.93 (3.65-5.03) M/mm3 Hgb 14.5 (11.8-15.2) gm/dl Hct 43.2 (35.5-45.6) % MCV 88 (84-94) fl MCH 30 (28-32) pg MCHC 34 (32-34) % RDW 15.0 (13.2-15.2) % Plt Count 218 (140-440) K/mm3 Lymph % (Auto) 21.9 (13.4-35.0) % [place] % (Auto) 7.3 (0.0-7.3) % Eos % (Auto) 0.1 (0.0-4.3) % Baso % (Auto) 0.7 (0.0-1.8) % Lymph # 2.1 (1.2-5.4) K/mm3 [place] # 0.7 (0.0-0.8) K/mm3 Eos # 0.0 (0.0-0.4) K/mm3 Baso # 0.1 (0.0-0.1) K/mm3 Seg Neutrophils % 70.0 (40.0-70.0) % Seg Neutrophils # 6.7 (1.8-7.7) K/mm3 Sodium (137-145) mmol/L Potassium (3.6-5.0) mmol/L Chloride (98-107) mmol/L Carbon Dioxide (22-30) mmol/L Anion Gap mmol/L BUN (9-20) mg/dL Creatinine (0.8-1.5) mg/dL Estimated GFR ml/min BUN/Creatinine Ratio % Glucose (75-100) mg/dL Calcium (8.4-10.2) mg/dL Troponin T (0.00-0.029) ng/mL Salicylates 0.6 L (2.8-20.0) mg/dL Acetaminophen < 5.0 L (10.0-30.0) ug/mL Plasma/Serum Alcohol (0-0.07) % 10/24/17 10/24/17 10/24/17 Range/Units 04:40 04:40 07:42 WBC (4.5-11.0) K/mm3 RBC (3.65-5.03) M/mm3 Hgb (11.8-15.2) gm/dl Hct (35.5-45.6) % MCV (84-94) fl MCH (28-32) pg MCHC (32-34) % RDW (13.2-15.2) % Plt Count (140-440) K/mm3 Lymph % (Auto) (13.4-35.0) % [place] % (Auto) (0.0-7.3) % Eos % (Auto) (0.0-4.3) % Baso % (Auto) (0.0-1.8) % Lymph # (1.2-5.4) K/mm3 [place] # (0.0-0.8) K/mm3 Eos # (0.0-0.4) K/mm3 Baso # (0.0-0.1) K/mm3 Seg Neutrophils % (40.0-70.0) % Seg Neutrophils # (1.8-7.7) K/mm3 Sodium 142 (137-145) mmol/L Potassium 4.6 (3.6-5.0) mmol/L Chloride 101.8 (98-107) mmol/L Carbon Dioxide 22 (22-30) mmol/L Anion Gap 23 mmol/L BUN 11 (9-20) mg/dL Creatinine 1.2 (0.8-1.5) mg/dL Estimated GFR > 60 ml/min BUN/Creatinine Ratio 9 % Glucose 97 (75-100) mg/dL Calcium 9.6 (8.4-10.2) mg/dL Troponin T < 0.010 < 0.010 (0.00-0.029) ng/mL Salicylates (2.8-20.0) mg/dL Acetaminophen (10.0-30.0) ug/mL Plasma/Serum Alcohol 0.07 (0-0.07) % - EKG Data -: EKG Interpreted by [facility] EKG shows normal: sinus rhythm, axis, intervals, QRS complexes, ST-T waves - EKG Data Interpretation: normal EKG - Radiology Data Ordering Physician: KACIE SELF MD Date of Service: 10/24/17 Procedure(s): XR chest 1V ap Accession Number(s): [id number] cc: KACIE SELF MD Fluoro Time In Minutes: Single view chest: Compared to 10/09/17. History: Chest pain. Next Findings: Normal cardiomediastinal silhouette. Trachea is midline. No consolidation, pneumothorax or pleural effusion. Impression: No acute cardiopulmonary findings. Transcribed By: PTP Dictated By: DANAY WILSON MD Electronically Authenticated By: DANAY WILSON MD Signed Date/Time: 10/24/17 1011 - Medical Decision Making Patient has been medically cleared at this time for psych evaluation. Patient' s EKG troponin and chest x-ray are not consistent with acute coronary syndrome. Patient's chest pain is most likely secondary just from the heat from using crack cocaine. Critical Care Time: Yes (30) Critical care attestation.: If time is entered above; I have spent that time in minutes in the direct care of this critically ill patient, excluding procedure time. ED Disposition Clinical Impression: Cocaine abuse, Suicidal thoughts Chest pain Qualifiers: Chest pain type: unspecified Qualified Code(s): R07.9 - Chest pain, unspecified Disposition: DC/TX-65 PSY HOSP/PSY UNIT Is pt being admited?: No Condition: Stable Instructions: Chest Pain (ED) Referrals: PRIMARY CARE, [Primary Care Provider] - 3-5 Days
--- NOTE | 2017-10-24 10:29 | XRay Report ---
Single view chest: Compared to 10/09/17. History: Chest pain. Next Findings: Normal cardiomediastinal silhouette. Trachea is midline. No consolidation, pneumothorax or pleural effusion. Impression: No acute cardiopulmonary findings.
[2017-10-24 13:16] LABS: Bilirubin,Urine NEG (Negative); Blood,Urine SM (Negative); Color,Urine Yellow (Yellow); Mucus,Urine 1+ /HPF; Protein,Urine <15 mg/dL mg/dL (Negative)
[2017-10-24 13:24] LABS: Benzodiazepines Screen,Urine PRESUMPTIVE NEGATIVE; Cannabinoid Screen,Urine PRESUMPTIVE NEGATIVE; Methadone Screen,Urine PRESUMPTIVE NEGATIVE; Opiate Screen,Urine PRESUMPTIVE NEGATIVE
[2017-10-24 13:38] LABS: Amphetamine Screen,Urine PRESUMPTIVE POSITIVE; Cocaine Screen,Urine PRESUMPTIVE POSITIVE
[2017-10-25 14:13] VITALS: BP 126/94
== END 2017-10-25 13:35 ==
LOC: EEVIPCON 04:05 → ED 04:05
DX: R07.89 Other chest pain (principal); F14.10 Cocaine abuse, uncomplicated; I11.0 Hypertensive heart disease with heart failure; E11.9 Type 2 diabetes mellitus without complications; K21.9 Gastro-esophageal reflux disease without esophagitis; F32.9 Major depressive disorder, single episode, unspecified; F25.9 Schizoaffective disorder, unspecified; G47.00 Insomnia, unspecified; F17.200 Nicotine dependence, unspecified, uncomplicated; Z95.1 Presence of aortocoronary bypass graft; Z79.82 Long term (current) use of aspirin
CPT/HCPCS: 36415; 71045; 80048; 80307; 81001; 82962; 84484; 85025; 93005; 93010; 99291; G0480; 80320

== ENCOUNTER 2019-08-20 21:43 | Observation (INO) | payer MEDICARE ==
[2019-08-20] MEDS ORDERED: ASPIRIN 325 MG TAB PO ONE (22:56)
[2019-08-20 23:21] LABS: Basophils # (Auto) 0.1 K/mm3 (0.0-0.1); Eosinophils % (Auto) 0.4 % (0.0-4.3); Hematocrit 41.2 % (35.5-45.6); Hemoglobin 13.7 gm/dl (11.8-15.2); Lymphocytes # (Auto) 2.6 K/mm3 (1.2-5.4); Lymphocytes % (Auto) 27.3 % (13.4-35.0); Mean Corpuscular HGB Conc 33 % (32-34); Mean Corpuscular Volume 87 fl (84-94); Monocytes # (Auto) 1.2 K/mm3 (0.0-0.8); Monocytes % (Auto) 12.9 % (0.0-7.3); Platelet Count 265 K/mm3 (140-440); Red Blood Count 4.75 M/mm3 (3.65-5.03); Red Cell Distribution Width 15.3 % (13.2-15.2)
[2019-08-20 23:33] LABS: BUN/Creatinine Ratio 18; Blood Urea Nitrogen 16 mg/dL (9-20); Calcium 10.2 mg/dL (8.4-10.2); Hemolysis Index 5
--- NOTE | 2019-08-20 23:33 | Emergency Department Report ---
ED Chest Pain HPI - General Chief Complaint: Chest Pain Stated Complaint: CHEST PAIN Time Seen by Provider: 08/20/19 23:24 Source: patient Mode of arrival: Ambulatory Limitations: No Limitations - History of Present Illness Initial Comments: Patient is 49 years old male with history of coronary artery disease status post 3 stent, hypertension diabetes and polysubstance abuse. Patient presented to the ER complaining of chest pain, described as substernal, tightness with no radiation. Patient stated that pain started this morning. Patient stated that he relapsed on methamphetamine and crack cocaine. Patient denied any shortness of breath, cough, fever or chills. MD Complaint: chest pain -: This morning Onset: during rest Pain Location: substernal Severity: moderate Severity scale (0 -10): 6 Quality: tightness - Related Data Home Medications Medication Instructions Recorded Confirmed Last Taken Atorvastatin Calcium [Lipitor] 80 mg PO QHS #0 05/27/17 10/09/17 1 Day Ago ~05/26/17 Metoprolol [Lopressor TAB] 12.5 mg PO BID 05/27/17 10/09/17 1 Day Ago ~05/26/17 Sertraline [Zoloft] 100 mg PO QDAY #0 05/27/17 10/09/17 1 Day Ago ~05/26/17 100 mg haloperidoL [Haldol] 2 mg PO QHS #0 MDD psychosis 05/27/17 10/09/17 2 Days Ago ~05/25/17 2 mg raNITIdine HCl [Zantac 150 MG TAB] 150 mg PO BID #0 05/27/17 10/09/17 1 Day Ago ~05/26/17 Previous Rx's Medication Instructions Recorded Last Taken Type Aspirin EC [Halfprin EC] 81 mg PO QDAY #30 tablet. 05/29/17 Unknown Rx Famotidine [Pepcid] 20 mg PO BID #60 tablet 05/29/17 Unknown Rx Aspirin EC [Ecotrin] 325 mg PO QDAY #30 tablet 10/10/17 Unknown Rx AtorvaSTATin [Lipitor] 40 mg PO QHS #30 tablet 10/10/17 Unknown Rx ISOSORBIDE MONOnitrate [Imdur ER] 30 mg PO QDAY #30 tablet 10/10/17 Unknown Rx Lisinopril [Zestril] 20 mg PO QDAY #30 tablet 10/10/17 Unknown Rx Mirtazapine [Remeron] 15 mg PO HS #30 tablet 10/10/17 Unknown Rx Sertraline [Zoloft] 100 mg PO QDAY #30 tablet 10/10/17 Unknown Rx haloperidoL [Haldol] 2 mg PO QHS tablet 10/10/17 Unknown Rx Allergies Allergy/AdvReac Type Severity Reaction Status Date / Time No Known Allergies Allergy Verified 04/20/17 21:18 Heart Score - HEART Score History: Moderately suspicious EKG: Non-specific Age: 45-65 Risk factors: > 3 risk factors or hx of atherosclerotic disease Troponin: < normal limit HEART Score: 5 - Critical Actions Critical Actions: 4-6 pts:12-16.6% risk of adverse cardiac event. Should be admitted ED Review of Systems ROS: Stated complaint: CHEST PAIN Other details as noted in HPI Comment: All other systems reviewed and negative Constitutional: denies: chills, fever Respiratory: denies: cough, orthopnea, shortness of breath, SOB with exertion, SOB at rest, wheezing Cardiovascular: chest pain. denies: palpitations, dyspnea on exertion Gastrointestinal: denies: abdominal pain, nausea, vomiting Musculoskeletal: denies: back pain Neurological: denies: headache, weakness ED Past Medical Hx - Past Medical History Previous Medical History?: Yes Hx Hypertension: Yes Hx Heart Attack/AMI: Yes (x2- 3stents) Hx Diabetes: Yes Hx GERD: Yes Hx Psychiatric Treatment: Yes (major depression, Schizoaffective, Insomnia) Hx COPD: No Additional medical history: crack abuse - Surgical History Past Surgical History?: Yes Hx Coronary Stent: Yes Additional Surgical History: 3 angiograms - Social History Smoking Status: Current Every Day Smoker Substance Use Type: None - Medications Home Medications: Home Medications Medication Instructions Recorded Confirmed Last Taken Type Atorvastatin Calcium [Lipitor] 80 mg PO QHS #0 05/27/17 10/09/17 1 Day Ago History ~05/26/17 Metoprolol [Lopressor TAB] 12.5 mg PO BID 05/27/17 10/09/17 1 Day Ago History ~05/26/17 Sertraline [Zoloft] 100 mg PO QDAY #0 05/27/17 10/09/17 1 Day Ago History ~05/26/17 100 mg haloperidoL [Haldol] 2 mg PO QHS #0 MDD psychosis 05/27/17 10/09/17 2 Days Ago History ~05/25/17 2 mg raNITIdine HCl [Zantac 150 MG TAB] 150 mg PO BID #0 05/27/17 10/09/17 1 Day Ago History ~05/26/17 Aspirin EC [Halfprin EC] 81 mg PO QDAY #30 tablet. 05/29/17 10/09/17 Unknown Rx Famotidine [Pepcid] 20 mg PO BID #60 tablet 05/29/17 10/09/17 Unknown Rx Aspirin EC [Ecotrin] 325 mg PO QDAY #30 tablet 10/10/17 Unknown Rx AtorvaSTATin [Lipitor] 40 mg PO QHS #30 tablet 10/10/17 Unknown Rx ISOSORBIDE MONOnitrate [Imdur ER] 30 mg PO QDAY #30 tablet 10/10/17 Unknown Rx Lisinopril [Zestril] 20 mg PO QDAY #30 tablet 10/10/17 Unknown Rx Mirtazapine [Remeron] 15 mg PO HS #30 tablet 10/10/17 Unknown Rx Sertraline [Zoloft] 100 mg PO QDAY #30 tablet 10/10/17 Unknown Rx haloperidoL [Haldol] 2 mg PO QHS tablet 10/10/17 Unknown Rx ED Physical Exam - General Limitations: No Limitations General appearance: alert, in no apparent distress - Head Head exam: Present: atraumatic, normocephalic, normal inspection - Eye Eye exam: Present: normal appearance - ENT ENT exam: Present: normal exam, normal orophraynx, mucous membranes moist - Neck Neck exam: Present: normal inspection, full ROM. Absent: tenderness, meningismus, lymphadenopathy, thyromegaly - Respiratory Respiratory exam: Present: normal lung sounds bilaterally - Cardiovascular Cardiovascular Exam: Present: regular rate, normal rhythm, normal heart sounds - GI/Abdominal GI/Abdominal exam: Present: soft, normal bowel sounds. Absent: distended, tenderness, guarding, rebound, rigid, organomegaly, mass, bruit, pulsatile mass, hernia - Extremities Exam Extremities exam: Present: normal inspection, full ROM, normal capillary refill. Absent: pedal edema, calf tenderness - Back Exam Back exam: Present: normal inspection, full ROM. Absent: CVA tenderness (R), CVA tenderness (L) - Neurological Exam Neurological exam: Present: alert, oriented X3, CN II-XII intact, normal gait, reflexes normal. Absent: motor sensory deficit - Psychiatric Psychiatric exam: Present: normal mood. Absent: depressed, suicidal ideation - Skin Skin exam: Present: warm, intact, normal color ED Course Vital Signs 08/20/19 22:47 Temperature 97.8 F Pulse Rate 88 Respiratory 20 Rate Blood Pressure 127/89 O2 Sat by Pulse 95 Oximetry WICHO score - Wicho Score Age > 65: (0) No Aspirin use within the Past 7 Days: (0) No 3 or more CAD Risk Factors: (0) No 2 or more Angina events in past 24 hrs: (0) No Known CAD with more than 50% Stenosis: (1) Yes Elevated Cardiac Markers: (0) No ST Deviation Greater than 0.5mm: (0) No WICHO Score: 1 ED Medical Decision Making - Lab Data Result diagrams: 08/20/19 22:59 08/20/19 22:59 - EKG Data -: EKG Interpreted by Pr EKG shows normal: sinus rhythm Rate: tachycardia - EKG Data Interpretation: no acute changes - Radiology Data Radiology results: report reviewed - Medical Decision Making Patient is 49 years old male with history of coronary artery disease status post 3 stent, hypertension diabetes and polysubstance abuse. Patient presented to the ER complaining of chest pain, described as substernal, tightness with no radiation. Patient stated that pain started this morning. Patient stated that he relapsed on methamphetamine and crack cocaine. Patient denied any shortness of breath, cough, fever or chills. EKG shows sinus tachycardia but no ST elevation. Chest x-ray is unremarkable. Initial labs reviewed and is unremarkable. I discussed the patient with Dr. Hinds, he agreed to admit the patient to medical service for further management. Critical care attestation.: If time is entered above; I have spent that time in minutes in the direct care of this critically ill patient, excluding procedure time. ED Disposition Clinical Impression: Chest pain, Cocaine abuse Disposition: OP ADMIT IP TO THIS HOSP Is pt being admited?: Yes Condition: Stable Instructions: Chest Pain (ED) Referrals: RIKA ALAN MD [Primary Care Provider] - 3-5 Days
--- NOTE | 2019-08-20 23:39 | XRay Report ---
CHEST 1 VIEW 11:22 PM INDICATION / CLINICAL INFORMATION: Chest tightness/pressure since this morning. COMPARISON: 10/24/17. FINDINGS: SUPPORT DEVICES: None. HEART / MEDIASTINUM: The heart size and pulmonary vasculature are normal. The aorta is normal in gretel nico. LUNGS / PLEURA: No significant pulmonary or pleural abnormality. No pneumothorax. ADDITIONAL FINDINGS: No significant additional findings. IMPRESSION: No acute abnormality or significant change. Signer Name: Jose Strange MD Signed: 08/20/2019 11:35 PM Workstation Name: [id number]
[2019-08-21] MEDS ORDERED: ONDANSETRON 4 MG/2 ML INJ IV PRN (00:55)
[2019-08-21] MEDS ORDERED: ACETAMINOPHEN 325 MG TAB PO PRN (00:56)
[2019-08-21] MEDS ORDERED: NITROGLYCERIN 0.4 MG TAB SUBL SL PRN (00:58)
[2019-08-21 01:57] LABS: Amorphous Crystals,Urine Few; Bacteria,Urine 1+ /HPF (Negative); Bilirubin,Urine NEG (Negative); Blood,Urine SM (Negative); Color,Urine Yellow (Yellow); Mucus,Urine 2+ /HPF; Urobilinogen,Urine < 2.0 mg/dL (<2.0)
[2019-08-21 02:01] LABS: Amphetamine Screen,Urine PRESUMPTIVE POSITIVE; Benzodiazepines Screen,Urine PRESUMPTIVE NEGATIVE; Cannabinoid Screen,Urine PRESUMPTIVE NEGATIVE; Cocaine Screen,Urine PRESUMPTIVE POSITIVE; Methadone Screen,Urine PRESUMPTIVE NEGATIVE; Opiate Screen,Urine PRESUMPTIVE NEGATIVE
[2019-08-21] MEDS ORDERED: LORazepam 2 MG/ML VIAL IV ONE (03:58)
[2019-08-21] MEDS: MORPHINE 2 MG/1 ML INJ IV PRN ×5 (04:02→22:48)
[2019-08-21] MEDS: HEPARIN 5,000 UNIT/1 ML VIAL SUB-Q SCH ×3 (04:32→21:15)
--- NOTE | 2019-08-21 05:40 | History and Physical Report ---
History of Present Illness Date of examination: 08/21/19 Date of admission: 08/21/19 00:41 Chief complaint: Chief complaint is chest pain History of present illness: History of presenting illness, patient is a 49-year-old male who has been having substernal pressure-like chest pain going on for some hours prior to presentation. There is no history of shortness of breath nausea or vomiting, patient also denied history of cough fever or chills and admitted to using crack cocaine and amphetamine prior to the onset of the chest pain. There is no history of dizziness and no history of change in mental status. Past History Past Medical History: CAD, diabetes (Trace), GERD (Coronary artery disease gastroesophageal reflux disease), hypertension (Shortness 6), other (1. CRACK COCAIN AND AMPHETAMINE ABUSE 2. SCHIZOPHRENIA) Past Surgical History: Other (ANGIOGRAPHY , CARDIAC STENT PLACEMENT) Social history: smoking, alcohol abuse, other (CRACK COCAIN AND AMPHETAMIN ABUSE ) Family history: no significant family history Medications and Allergies Allergies Allergy/AdvReac Type Severity Reaction Status Date / Time No Known Allergies Allergy Verified 04/20/17 21:18 Home Medications Medication Instructions Recorded Confirmed Last Taken Type Atorvastatin Calcium [Lipitor] 80 mg PO QHS #0 05/27/17 08/21/19 08/18/19 History 80 mg Metoprolol [Lopressor TAB] 25 mg PO QDAY 05/27/17 08/21/19 08/18/19 History 25 mg Sertraline [Zoloft] 50 mg PO QPM #0 05/27/17 08/21/19 08/18/19 History 50 mg Aspirin EC [Halfprin EC] 81 mg PO QDAY #30 tablet. 05/29/17 08/21/19 08/18/19 Rx 81 mg Mirtazapine [Remeron] 15 mg PO HS #30 tablet 10/10/17 08/21/19 08/18/19 Rx 15 mg haloperidoL [Haldol] 2 mg PO QHS tablet 10/10/17 08/21/19 08/18/19 Rx 2 mg Cholecalciferol (Vitamin D3) 2,000 unit PO DAILY 08/21/19 08/21/19 08/18/19 H istory [Vitamin D3] 2,000 unit Fluticasone [Flonase] 1 spray NS QDAY 08/21/19 08/21/1908/17/20 History 1 spray Lisinopril [Zestril] 40 mg PO QDAY 08/21/19 08/21/19 08/18/19 History 40 mg Metformin HCl [metFORMIN] 1,000 mg PO QPM 08/21/19 08/21/19 08/18/19 History 1,000 mg Pantoprazole Sodium [Protonix] 40 mg PO QDAY 08/21/19 08/21/19 08/18/19 History 40 mg QUEtiapine [SEROquel] 100 mg PO PRN PRN 08/21/19 08/21/19 08/18/19 History 100 mg Active Meds: Active Medications Acetaminophen (Tylenol) 650 mg PO Q4H PRN PRN Reason: Headache Aspirin (Aspirin) 325 mg PO QDAY [facility] Heparin Sodium (Porcine) (Heparin) 5,000 unit SUB-Q Q12HR [facility] Last Admin: 08/21/19 04:32 Dose: Not Given Documented by: Morphine Sulfate (Morphine) 2 mg IV Q3H PRN PRN Reason: Pain, Moderate (4-6) Last Admin: 08/21/19 04:02 Dose: 2 mg Documented by: Nitroglycerin (Nitro-Bid 2%) 1 inch TP QIDNTG [facility]; Protocol Nitroglycerin (Nitrostat) 0.4 mg SL .Q5MIN PRN PRN Reason: Chest Pain Ondansetron HCl (Zofran) 4 mg IV Q8H PRN PRN Reason: Nausea And Vomiting Review of Systems Constitutional: no weight loss, no weight gain, no fever, no chills, no sweats, no fatigue, no weakness, no malaise Eyes: bilateral: other (NO BILATERAL EYE SYMPTOMS) Ears, nose, mouth and throat: no ear pain, no ear discharge, no nasal congestion, no nasal discharge, no sinus pressure, no mouth pain, no dysphagia, no hoarseness, no sore throat, no headache, no vertigo Cardiovascular: chest pain, no orthopnea, no palpitations, no syncope, no lightheadedness, no shortness of breath Respiratory: no cough, no hemoptysis, no shortness of breath, no dyspnea on exertion, no congestion, no wheezing Gastrointestinal: no abdominal pain, no nausea, no vomiting, no diarrhea, no constipation, no change in bowel habits, no melena, no hematochezia, no heartburn, no indigestion, no belching Genitourinary Male: no hematuria, no nocturia, no polyuria Rectal: no pain, no itching Musculoskeletal: no neck stiffness, no neck pain, no shooting leg pain, no muscle cramps, no myalgias, no atrophy Integumentary: no rash, no pruritis, no redness, no sores, no wounds, no jaundice, no bullae, no darkening of skin, no depigmentation, no dryness Neurological: no weakness, no parathesias, no numbness, no tingling, no seizures, no syncope, no vertigo, no headaches, no migraines, no convulsions, no confusion Psychiatric: no anxiety, no memory loss, no sleep disturbances, no hallucinations, no paranoia, no confusion Endocrine: no cold intolerance, no polydipsia, no polyuria, no nocturia, no high blood sugars, no low blood sugars Hematologic/Lymphatic: no easy bruising, no easy bleeding, no lymphadenopathy Allergic/Immunologic: no urticaria Exam - Constitutional Vitals: Temp Pulse Resp BP Pulse Ox 98.4 F 79 20 127/87 99 08/21/19 03:44 08/21/19 03:44 08/21/19 03:44 08/21/19 03:44 08/21/19 03:44 General appearance: Present: mild distress - EENT Eyes: Present: PERRL, EOM intact ENT: hearing intact, clear oral mucosa - Neck Neck: Present: supple, normal ROM. Absent: enlarged thyroid, carotid bruits - Respiratory Respiratory effort: normal - Cardiovascular Rhythm: regular Heart Sounds: Present: S1 & S2, gallop. Absent: systolic murmur, diastolic murmur, click - Extremities Extremities: no ischemia, No edema Peripheral Pulses: within normal limits - Abdominal General gastrointestinal: Present: soft, non-tender, non-distended. Absent: [place], distended, rigid, hepatomegaly, splenomegaly Male genitourinary: Present: deferred - Rectal Rectal Exam: deferred - Integumentary Integumentary: Present: clear, warm, dry. Absent: erythema, jaundice, clammy - Musculoskeletal Musculoskeletal: strength equal bilaterally - Psychiatric Psychiatric: appropriate mood/affect HEART Score - HEART Score EKG: Non-specific Age: 45-65 Risk factors: > 3 risk factors or hx of atherosclerotic disease Troponin: Troponin T < 0.010 ng/mL (0.00-0.029) 08/21/19 02:11 Troponin: < normal limit - Critical Actions Critical Actions: 4-6 pts:12-16.6% risk of adverse cardiac event. Should be admitted Results - Labs CBC & Chem 7: 08/20/19 22:59 08/20/19 22:59 Labs: Laboratory Last Values WBC 9.6 K/mm3 (4.5-11.0) 08/20/19 22:59 RBC 4.75 M/mm3 (3.65-5.03) 08/20/19 22:59 Hgb 13.7 gm/dl (11.8-15.2) 08/20/19 22:59 Hct 41.2 % (35.5-45.6) 08/20/19 22:59 MCV 87 fl (84-94) 08/20/19 22:59 MCH 29 pg (28-32) 08/20/19 22:59 MCHC 33 % (32-34) 08/20/19 22:59 RDW 15.3 % (13.2-15.2) H 08/20/19 22:59 Plt Count 265 K/mm3 (140-440) 08/20/19 22:59 Lymph % (Auto) 27.3 % (13.4-35.0) 08/20/19 22:59 [place] % (Auto) 12.9 % (0.0-7.3) H 08/20/19 22:59 Eos % (Auto) 0.4 % (0.0-4.3) 08/20/19 22:59 Baso % (Auto) 1.0 % (0.0-1.8) 08/20/19 22:59 Lymph # 2.6 K/mm3 (1.2-5.4) 08/20/19 22:59 [place] # 1.2 K/mm3 (0.0-0.8) H 08/20/19 22:59 Eos # 0.0 K/mm3 (0.0-0.4) 08/20/19 22:59 Baso # 0.1 K/mm3 (0.0-0.1) 08/20/19 22:59 Seg Neutrophils % 58.4 % (40.0-70.0) 08/20/19 22:59 Seg Neutrophils # 5.6 K/mm3 (1.8-7.7) 08/20/19 22:59 Sodium 137 mmol/L (137-145) 08/20/19 22:59 Potassium 4.3 mmol/L (3.6-5.0) 08/20/19 22:59 Chloride 96.7 mmol/L (98-107) L 08/20/19 22:59 Carbon Dioxide 25 mmol/L (22-30) 08/20/19 22:59 Anion Gap 20 mmol/L 08/20/19 22:59 BUN 16 mg/dL (9-20) 08/20/19 22:59 Creatinine 0.9 mg/dL (0.8-1.5) 08/20/19 22:59 Estimated GFR > 60 ml/min 08/20/19 22:59 BUN/Creatinine Ratio 18 % 08/20/19 22:59 Glucose 112 mg/dL (75-100) H 08/20/19 22:59 Calcium 10.2 mg/dL (8.4-10.2) 08/20/19 22:59 Troponin T < 0.010 ng/mL (0.00-0.029) 08/21/19 02:11 Urine Color Yellow (Yellow) 08/21/19 01:33 Urine Turbidity Turbid (Clear) 08/21/19 01:33 Urine pH 5.0 (5.0-7.0) 08/21/19 01:33 Ur Specific [place] 1.030 (1.003-1.030) 08/21/19 01:33 Urine Protein 100 mg/dl mg/dL (Negative) 08/21/19 01:33 Urine Glucose (UA) Neg mg/dL (Negative) 08/21/19 01:33 Urine Ketones Tr mg/dL (Negative) 08/21/19 01:33 Urine Blood Sm (Negative) 08/21/19 01:33 Urine Nitrite Neg (Negative) 08/21/19 01:33 Urine Bilirubin Neg (Negative) 08/21/19 01:33 Urine Urobilinogen < 2.0 mg/dL (<2.0) 08/21/19 01:33 Ur Leukocyte Esterase Neg (Negative) 08/21/19 01:33 Urine WBC (Auto) 4.0 /HPF (0.0-6.0) 08/21/19 01:33 Urine RBC (Auto) 16.0 /HPF (0.0-6.0) 08/21/19 01:33 Urine Bacteria (Auto) 1+ /HPF (Negative) 08/21/19 01:33 Amorphous Crystals Few 08/21/19 01:33 Urine Mucus 2+ /HPF 08/21/19 01:33 Urine Opiates Screen Presumptive negative 08/21/19 01:33 Urine Methadone Screen Presumptive negative 08/21/19 01:33 Ur Barbiturates Screen Presumptive positive 08/21/19 01:33 Ur Phencyclidine Scrn Presumptive negative 08/21/19 01:33 Ur Amphetamines Screen Presumptive positive 08/21/19 01:33 U Benzodiazepines Scrn Presumptive negative 08/21/19 01:33 Urine Cocaine Screen Presumptive positive 08/21/19 01:33 U Marijuana (THC) Screen Presumptive negative 08/21/19 01:33 Drugs of Abuse Note Disclamer 08/21/19 01:33 Muller/IV: Voiding Method Toilet IV Catheter Type [Left INT / Saline Lock Antecubital] Assessment and Plan - Patient Problems (1) Chest pain Current Visit: Yes Status: Acute Plan to address problem: 1. TELEMETRY OBSERVATION 2. SERIAL CARDIAC ENZYMES 3. NPO AND LEXISCAN STRESS TEST 4. NITROGLYCERIN SUBLINGUAL AND PASTE 5. I.V MORPHINE FOR PAIN 6 I.V ZOFRAN FOR NAUSEA AND VOMITING 7. TYLENOL FOR HEADACHE AND FEVER 8. ASPIRIN ORALLY 9. OXYGEN BY NASAL CANNULA (2) Cocaine abuse Current Visit: Yes Status: Acute Plan to address problem: COUNSELING AGAINST ILLICIT DRUG USE (3) Diabetes mellitus type 2 in obese Current Visit: No Status: Chronic Plan to address problem: 1. ACCUCHECKS AND SLIDING SCALE INSULIN COVERAGE
[2019-08-21 06:03] LABS: Creatine Kinase MB 58.3 ng/mL (0.0-4.0)
[2019-08-21] MEDS: NITROGLYCERIN 2% OINT 1 GM TP SCH ×4 (06:23→17:30)
[2019-08-21] MEDS ORDERED: REGADENOSON 0.4 MG/5 ML INJ IV ONE ×2 (08:01→08:04)
[2019-08-21] MEDS ORDERED: ASPIRIN 325 MG TAB PO SCH (10:00)
--- NOTE | 2019-08-21 10:13 | Treadmill Report ---
NUCLEAR PERFUSION STRESS TEST REASON FOR STUDY: Chest pain. READING PHYSICIAN: Dr. Mathew. IMAGING PROTOCOL: The patient received 10 mCi of Technetium 99m Tetrofosmin for resting image and 28 mCi of Technetium 99m Tetrofosmin for stress imaging. The imaging for the whole procedure was completed 30-90 minutes following the initial injection of Technetium 99m Tetrofosmin. The SPECT imaging in the 180 degree arc was performed in the right anterior oblique projection. Computerized reconstruction of the images was performed for analysis. IMAGING RESULTS: Normal cavity size from stress to rest. Normal distribution of radionuclide in the anterior, inferior, septal, and apical regions. Gated SPECT, EF 64% with no wall motion abnormality. The patient infused Lexiscan with no EKG changes. SUMMARY: 1. Negative Lexiscan EKG. 2. Normal rest and stress myocardial perfusion scan. No significant ischemia. No wall motion abnormality. Gated SPECT, EF 64%. JOB# [id number] ALLISON/ANIL
[2019-08-21] MEDS ORDERED: hydrALAZINE 20 MG/1 ML INJ IV PRN (12:40)
--- NOTE | 2019-08-21 12:49 | Event Note ---
Date: 08/21/19 Patient seen and examined He is awake alert and oriented Complains of severe muscle pain in the lower extremities Chart reviewed Lab results reviewed Discussed with patient He also gives history of schizoaffective disorder Nuclear medicine MPI stress test is normal However I suspect patient is in rhabdomyolysis/cocaine induced We will start the patient on IV fluids Monitor electrolytes and CK Discussed with patient
[2019-08-21] MEDS: PANTOPRAZOLE 40 MG TAB PO SCH (13:21)
[2019-08-21] MEDS: SODIUM CHLORIDE 0.9% 1000 ML 1,000 ML IV SCH ×3 (13:21→21:13)
[2019-08-21 14:51] LABS: Creatine Kinase MB 41.7 ng/mL (0.0-4.0)
[2019-08-21] MEDS ORDERED: SERTRALINE 50 MG TAB PO SCH (18:00)
[2019-08-21] MEDS ORDERED: SERTRALINE 100 MG TAB PO SCH (18:00)
[2019-08-21] MEDS ORDERED: QUEtiapine 100 MG TAB PO SCH (22:00)
[2019-08-22 05:10] LABS: BUN/Creatinine Ratio 16; Blood Urea Nitrogen 13 mg/dL (9-20); Calcium 8.5 mg/dL (8.4-10.2); Hemolysis Index 7
[2019-08-22] MEDS: NITROGLYCERIN 2% OINT 1 GM TP SCH (06:28)
[2019-08-22 09:34] VITALS: BP 112/71
[2019-08-22] MEDS ORDERED: NON-FORMULARY EACH (Pantoprazole Sodium [Protonix] 40 MG) PO SCH (10:00)
[2019-08-22] MEDS ORDERED: ASPIRIN EC 81 MG TAB PO SCH (10:00)
--- NOTE | 2019-08-22 11:05 | Discharge Summary ---
Providers - Providers Date of Admission: 08/21/19 00:41 Date of discharge: 08/22/19 Attending physician: HUGH GALLARDO [facility] Reason for admission: chest pain Condition: Stable Pertinent studies: Nuclear medicine MPI stress test Hospital course: Patient was admitted via the ED for evaluation of chest pain He is a cocaine abuser Stress test was normal However as the patient was complaining of severe pain in the legs and thighs and as his CK was greater than 8000, he was started on IV fluids with normal saline at 200 mL/h with suspected rhabdomyolysis secondary to cocaine use This morning patient states that his pain is a lot better, CK came down to ar ound [phone] Patient is medically stable for discharge Upon his request I have filled most of his home medications Disposition: - TO HOME OR SELFCARE Time spent for discharge: 36 min - Discharge Diagnoses (1) Rhabdomyolysis Status: Acute Qualifiers: Rhabdomyolysis type: non-traumatic Qualified Code(s): M62.82 - Rhabdomyolysis Comment: Improved significantly (2) Chest pain Status: Acute Qualifiers: Chest pain type: unspecified Qualified Code(s): R07.9 - Chest pain, unspecified (3) Cocaine abuse Status: Chronic Comment: Patient states that he is going to [facility] for detoxification (4) Hypertension Status: Chronic Qualifiers: Hypertension type: essential hypertension Qualified Code(s): I10 - Essential (primary) hypertension Core Measure Documentation - Palliative Care Palliative Care/ Comfort Measures: Not Applicable - Core Measures Any of the following diagnoses?: none Exam - Constitutional Vitals: Temp Pulse Resp BP Pulse Ox 98.5 F 74 18 112/71 100 08/22/19 07:26 08/22/19 04:34 08/22/19 07:26 08/22/19 07:26 08/22/19 07:48 General appearance: Present: no acute distress, well-nourished - EENT Eyes: Present: PERRL, EOM intact ENT: hearing intact, clear oral mucosa - Neck Neck: Present: supple, normal ROM - Respiratory Respiratory effort: normal Respiratory: bilateral: CTA - Cardiovascular Rhythm: regular Heart Sounds: Present: S1 & S2 - Extremities Extremities: No edema - Abdominal General gastrointestinal: Present: soft, non-tender Male genitourinary: Present: deferred - Rectal Rectal Exam: deferred - Integumentary Integumentary: Present: clear - Musculoskeletal Musculoskeletal: strength equal bilaterally - Psychiatric Psychiatric: appropriate mood/affect, intact judgment & insight - Neurologic Neurologic: no focal deficits Plan Activity: advance as tolerated Weight Bearing Status: Weight Bear as Tolerated Diet: regular, low fat, low cholesterol, low salt Follow up with: RIKA ALAN MD [Primary Care Provider] - 3-5 Days Prescriptions: Fluticasone [Flonase] 1 spray NS QDAY #1 bottle haloperidoL [Haldol] 2 mg PO QHS #7 tablet Atorvastatin Calcium [Lipitor] 80 mg PO QHS #30 Metoprolol [Lopressor TAB] 25 mg PO QDAY #30 Metformin HCl [metFORMIN] 1,000 mg PO QPM #60 HYDROcodone/APAP 5-325 [[place] 5/325] 1 each PO Q6HR PRN #10 tablet PRN Reason: Pain QUEtiapine [SEROquel] 100 mg PO PRN PRN #14 PRN Reason: Sleep Lisinopril [Zestril TAB] 30 mg PO QDAY #30 tab Sertraline [Zoloft] 50 mg PO QPM #30 tablet
[2019-08-22] MEDS: PANTOPRAZOLE 40 MG TAB PO SCH (11:47)
== END 2019-08-22 13:55 | disposition home or self-care (01) ==
LOC: ED 21:43 → 4A 08-21 00:41 → UNDOADMIN 08-21 00:41 → 4A 08-21 00:41
PROVIDERS: ADMIT Internal Medicine; ATTEND Internal Medicine
DX: M62.82 Rhabdomyolysis (principal); R07.89 Other chest pain; E11.69 Type 2 diabetes mellitus with other specified complication; E66.9 Obesity, unspecified; I25.10 Atherosclerotic heart disease of native coronary artery without angina pectoris; K21.9 Gastro-esophageal reflux disease without esophagitis; I10 Essential (primary) hypertension; F20.9 Schizophrenia, unspecified; I25.2 Old myocardial infarction; F32.9 Major depressive disorder, single episode, unspecified; F14.10 Cocaine abuse, uncomplicated; F17.200 Nicotine dependence, unspecified, uncomplicated; Z71.6 Tobacco abuse counseling; Z95.5 Presence of coronary angioplasty implant and graft; Z79.82 Long term (current) use of aspirin; Z79.84 Long term (current) use of oral hypoglycemic drugs; Z79.899 Other long term (current) drug therapy; Z68.31 Body mass index [BMI] 31.0-31.9, adult
CPT/HCPCS: 36415; 71045; 78452; 80048; 80307; 81001; 82550; 82553; 84484; 85025; 93005; 93017; 96361; 96372; 96374; 96375; 96376; 99285; 99406; A9502; G0378; J1644; J2060; J2270; J2405; J2785; J7030